=== PATIENT | male | born 1960 | race Caucasian/White ===

== ENCOUNTER → 2017-02-05 10:01 | Emergency (ER) | payer BC ==
--- NOTE | 2017-02-05 11:15 | RAD ---
HISTORY: Right patellar pain, trauma COMPARISONS: None VIEWS: 5, Frontal, lateral, axial, and oblique views of the right knee FINDINGS: BONE DENSITY: Normal. BONES: There is no displaced fracture. JOINTS: There is no arthropathy. There is no suprapatellar joint effusion or lipohemarthrosis. ALIGNMENT: There is no dislocation. SOFT TISSUES: There is extensive prepatellar soft tissue swelling OTHER FINDINGS: None. IMPRESSION: SOFT TISSUE SWELLING. NO ACUTE OSSEOUS INJURY. IF SYMPTOMS PERSIST, RECOMMEND REPEAT IMAGING.
--- NOTE | 2017-02-06 17:15 | ED ---
Bertin Jacinto Aidan, scribed for Andrea Cavazos MD on 02/05/17 at 1106 . Lower Extremity - HPI Summary HPI Summary: 56 y/o male presents to the ED with a complaint of acute, constant, moderate (4/ 10), right knee pain with associated inflammation, stiffness, and bruising that resulted yesterday after a mechanical fall onto the right knee. The swelling and bruising was first noticed this morning. There are no other associated signs or symptoms, nor are there any alleviating or aggravating factors. - History of Current Complaint Chief Complaint: EDExtremityLower Stated Complaint: KNEE INJURY Time Seen by Provider: 02/05/17 10:17 Hx Obtained From: Patient Mechanism Of Injury: Fall From A Standing Position - Pt tripped and fell onto his right knee Onset of Pain: Immediate Onset/Duration: Hours - since yesterday evening Severity Initially: Moderate Severity Currently: Moderate Pain Intensity: 4 Pain Scale Used: 0-10 Numeric Timing: Constant Location: Is Discrete @ - right knee Character Of Pain: Sharp Associated Signs And Symptoms: Positive: Swelling, Bruising, Knee Pain, Other - stiffness Aggravating Factor(s): Other - unknown Alleviating Factor(s): Other - unknown Able to Bear Weight: Yes - Risk Factors Gout Risk Factors: Age Over 40, Male - Allergies/Home Medications Allergies/Adverse Reactions: Allergies Allergy/AdvReac Type Severity Reaction Status Date / Time No Known Allergies Allergy Verified 02/05/17 10:03 Home Medications: Home Medications Pseudoephedrine-Naproxen Sodiu [Aleve-D Sinus & Cold 120-220 mg] 1 tab PO BID [History Confirmed 02/05/17] celeCOXIB CAP* [Celebrex CAP*] 1 tab PO DAILY 02/05/17 [History Confirmed ] PMH/Surg Hx/FS Hx/Imm Hx - Surgical History Surgery Procedure, Year, and Place: back repair, lateral meniscus repair on left knee, Orbital repair, Ventral Hernia repair, Chronic back pain Infectious Disease History: No Infectious Disease History: Denies: Traveled Outside the [place] in Last 30 Days - Family History Known Family History: Positive: Cardiac Disease - Social History Occupation: Employed Full-time Lives: With Family Alcohol Use: Daily Alcohol Amount: 1-2 glasses of wine Substance Use Type: Reports: None Smoking Status (MU): Never Smoked Tobacco Review of Systems Constitutional: Negative Eyes: Negative ENT: Negative Cardiovascular: Negative Respiratory: Negative Gastrointestinal: Negative Genitourinary: Negative Positive: Arthralgia - right knee pain with associated swelling, bruising, and stiffness Skin: Negative Neurological: Negative Psychological: Normal All Other Systems Reviewed And Are Negative: Yes Physical Exam - Summary Physical Exam Summary: VITAL SIGNS: Reviewed. GENERAL: Patient is a well-developed and nourished (MALE OR FEMALE) who is lying comfortable in the stretcher. Patient is not in any acute respiratory distress. HEAD AND FACE: No signs of trauma. No ecchymosis, hematomas or skull depressions. No sinus tenderness. EYES: PERRLA, EOMI x 2, No injected conjunctiva, no nystagmus. EARS: Hearing grossly intact. Ear canals and tympanic membranes are within normal limits. MOUTH: Oropharynx within normal limits. NECK: Supple, trachea is midline, no adenopathy, no JVD, no carotid bruit, no c- spine tenderness, neck with full ROM. CHEST: Symmetric, no tenderness at palpation LUNGS: Clear to auscultation bilaterally. No wheezing or crackles. CVS: Regular rate and rhythm, S1 and S2 present, no murmurs or gallops appreciated. ABDOMEN: Soft, non-tender. No signs of distention. No rebound no guarding, and no masses palpated. Bowel sounds are normal. EXTREMITIES: within normal limits, right knee posterior effusion with ecchymosis ; at the lateral aspect of the right knee, ROM is secondary to pain and swelling no edema, no cyanosis or clubbing. NEURO: Alert and oriented x 3. No acute neurological deficits. Speech is normal and follows commands. SKIN: Dry and warm Triage Information Reviewed: Yes Vital Signs On Initial Exam: Initial Vitals Temp Pulse Resp BP Pulse Ox 97.6 F 68 18 120/75 100 02/05/17 10:03 02/05/17 10:03 02/05/17 10:03 02/05/17 10:02/05/17 10:03 Vital Signs Reviewed: Yes Diagnostics - Vital Signs Vital Signs Temp Pulse Resp BP Pulse Ox 02/05/17 10:03 97.6 F 68 18 120/75 100 - Laboratory Lab Statement: Any lab studies that have been ordered have been reviewed, and results considered in the medical decision making process. - Radiology KNEE X-RAY Xray Interpretation: No Acute Changes - IMPRESSION: SOFT TISSUE SWELLING. NO ACUTE OSSEOUS INJURY. IF SYMPTOMS PERSIST, RECOMMEND REPEAT IMAGING. Radiology Interpretation Completed By: Radiologist Lower Extremity Course/Dx - Course Course Of Treatment: 56 y/o male presents with right knee pain, swelling, bruising, and stiffness S/P a fall onto his right knee from the standing position. Imaging reviewed and did not indicate fracture or dislocation. It did , however, show patellar soft tissue swelling. The patient was placed in a knee imobilizer. He will apply ice and elevate. He will be taking ibuprofen for pain. The patient will be discharged with a diagnosis of knee pain and swelling. Encouraged follow up with primary care and Orthopedics. I discussed all the findings and test results with the patient. Patient was instructed to return to the emergency room immediately if any of the symptoms return or worsens. Plan of care was discussed with the patient and understands and agrees. All questions were answered at patient satisfaction. There were no further complaints or concerns. Lung exam before discharge: CTA B/L. Good air exchange. No wheezing or crackles heard. CVS: S1 and S2 present. No murmurs appreciated. Patient is alert and oriented x 3. Patient is hemodynamically stable. Patient will be discharged home with follow up PCP in the next 2-3 days - Diagnoses Differential Diagnosis/HQI/PQRI: Positive: Contusion, Dislocation, Foreign Body , Sprain, Strain Provider Diagnoses: Knee pain, Knee swelling Discharge - Discharge Plan Condition: Stable Disposition: HOME Discharge Disposition Comment: Please follow up with your primary care provider within 3 days. Patient Education Materials: Knee Pain (ED), Swollen Knee Joint (ED) Referrals: Non Staff,Doctor [Primary Care Provider] - The documentation as recorded by the Bertin jackman Aidan accurately reflects the service I personally performed and the decisions made by me, Andrea Cavazos MD.
== END | disposition home or self-care (01) ==
LOC: ED 10:01
DX: M25.561 Pain in right knee (principal); R60.0 Localized edema
CPT/HCPCS: 99282